=== PATIENT | female | born 1955 | race Hispanic/Latino ===

== ENCOUNTER → 2024-08-05 | Outpatient (CLI) | payer OTHER, MEDICARE ==
[~2024-08-05] MED LIST: ACET500C4 PO; AMLO-257 PO; AMOX500C2 PO; ESCI20TA38 PO; FENO145T26 PO; FOLI0.8T3 PO; GABA300S3 PO; GLIP10TA16 PO; METF-446 PO; PRAV40TA3 PO; RAMI2.5C57 PO
[2024-08-05] MEDS: REGADENOSON 0.4 MG/5 ML PF SYG IVP ONE (11:34)
--- NOTE | 2024-08-06 13:35 | HMCSR ---
APPROVED REPORT Height: 5 ft 3in Weight: 154 lbs TEST INDICATIONS Chest Pain The imaging protocol used to acquire images was Rest Tc-99m/stress Tc-99m 1 day Consent: The procedure was explained and understood by the patient. Informerd consent was witnessed Keanu Upton RN First, low dose rest was performed then high dose stress. RESTING DATA: The resting ekg shows: Junctional vs paced, CLBBB Rest SPECT myocardial perfusion imaging was performed in supine position 67 minutes following the int ravenous injection of 11.4 mCi of Tc-99 Sestamibi. Time of rest injection: 09:41: Date: 08/05/2024 Time of rest imagin:48: Date: 08/05/2024 PHARMACOLOGIC STRESS: Pharmacologic stress test was performed by injecting regadenoson 0.4 mg IV push followed by the intra venous injection of 31.0 mCi of Tc-99 Sestamibi. Time of stress injection: 11:22: Date: 08/05/2024 Time of stress imagin:33: Date: 08/05/2024 Heart Rate at time of stress injection: 95 bpm. Gated Stress SPECT was performed 71 minutes after stress injection. The images were gated to evaluate regional wall motion and calculate left ventricular ejection fracti on. STRESS DETAILS Reason for Termination: Infusion complete Stress Symptoms: Dyspnea Max HR Achieved: 99 bpm % of APMHR Achieved: 65 Max Blood Pressure: 119/67 mmHg Stress ECG: Junctional vs paced, CLBBB Conclusion No ischemia No infarct LV ejejction fraction 9% Normal LV size at rest and stress No increased lung uptake Global severe hypokinesis
== END | disposition home or self-care (01) ==
LOC: SHCH 09:06
PROVIDERS: ATTEND Internal Medicine Cardiovascular Disease
DX: I44.7 Left bundle-branch block, unspecified (principal); R07.9 Chest pain, unspecified
CPT/HCPCS: 78452; 93017; J2785; A9500 ×2

== ENCOUNTER 2025-06-11 06:48 | Day surgery (SDC) | payer OTHER, MEDICAID ==
[2025-06-09 09:35] VITALS: BP 119/59; PULSE 69; RESP 13; TEMP 97.7
[2025-06-09 09:38] LABS: IMMATURE GRANULOCYTE ABSOLUTE 0.03 K/uL (0-1); NUCLEATED RED BLOOD CELLS 0.0 % (0.0-0.19); PLATELET COUNT (AUTO) 200 K/uL (130-400); RED BLOOD CELL COUNT(AUTO) 3.13 MIL/uL (4.00-5.50); RED CELL DISTRIBUTION WIDTH 13.7 % (11.0-15.5); WHITE BLOOD COUNT (AUTO) 3.0 K/uL (4.8-10.8)
[2025-06-09 09:38] LABS: CREATININE 0.8 mg/dL (0.5-1.0); GLOMERULAR FILTR. RATE CALC 80.0 mL/min (>90); GLUCOSE,RANDOM 118.0 mg/dL (70-105); SODIUM SERUM 143.0 mmol/L (136-145); UREA NITROGEN, BLOOD 21.0 mg/dL (7-18)
[2025-06-09 09:45] LABS: INR 1.77 (0.85-1.15)
[2025-06-09 14:26] LABS: BASOPHILS % (MANUAL) 1 % (0-2); EOSINOPHILS % (MANUAL) 6 % (1-6); LYMPHOCYTES % (MANUAL) 23 % (22-44); MAN.DIFF COMMENT-IMPRESSION MANUAL DIFFERENTIAL; PLATELET MORPHOLOGY COMMENT ADEQUATE; SEGMENTED NEUTROPHILS % 70 % (40-70)
--- NOTE | 2025-06-09 14:35 | EKG ---
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
--- NOTE | 2025-06-10 16:25 | NUR ---
report reported coags to dr silva. received orders to repeat in am.
[~2025-06-11] VITALS: Ht 160 cm; Wt 67.9 kg
[2025-06-11] VITALS (8 sets, daily range): BP systolic 107–122; BP diastolic 47–77; PULSE 70–96; RESP 13–19; TEMP 97.6–97.9
[~2025-06-11 06:48] MED LIST changes: -ACET500C4 PO; +AEC81 PO; -AMLO-257 PO; -AMOX500C2 PO; +EMPA1TAB7 PO; +FERS325 PO; +GABA300C PO; -GABA300S3 PO; -GLIP10TA16 PO; -METF-446 PO; +MIDO10TA3 PO; +PIOG30TA70 PO; -PRAV40TA3 PO; +PRAV40TA62 PO; -RAMI2.5C57 PO; +SOLI10TA PO
[2025-06-11 07:19] LABS: INR 1.08 (0.85-1.15)
[2025-06-11] MEDS: 0.9%NACL 1000ML 1,000 ML IV SCH (07:48)
[2025-06-11] MEDS ORDERED: LIDOCAINE HCL 1% MDV 50ML VIAL ONE (10:05)
[2025-06-11] MEDS ORDERED: SODIUM BICARB 50MEQ 50ML VIAL 50 ML ONE (10:05)
[2025-06-11] MEDS ORDERED: MIDAZOLAM HCL 1 MG/ML 2ML VIAL ONE ×3 (10:30→15:50)
[2025-06-11] MEDS ORDERED: IOHEXOL-350 50ML VIAL IV ONE ×2 (10:39→12:33)
[2025-06-11] MEDS ORDERED: NITROGLYCERIN 50MG VIAL ONE (13:06)
[2025-06-11] MEDS ORDERED: BACITRACIN 1 EACH PACKET TP ONE (14:47)
[2025-06-11] MEDS ORDERED: TRAM50TA4 PO (16:34)
--- NOTE | 2025-06-11 16:45 | NUR ---
LOCAL OWNER OPERATOR TRUCK DRIVER POST-PROCEDURE PRESSURE DRESSING TO LEFT UPPER CHEST. NO ACTIVE BLEEDING OR DRAINAGE NOTED TO DRESSING. PRESSURE DRESSING DRY AND INTACT. NO REDNESS OR SWELLING NOTED TO DRESSING. PATIENT ABLE TO WIGGLE FINGERS. PATIENT AWAKE AND ORIENTED X4. DAUGHTER AND AT BEDSIDE. CALL LIGHT AT BEDSIDE. BED LOW AND LOCKED.
--- NOTE | 2025-06-11 17:00 | NUR ---
POST-ACCOUNTS RECEIVABLE ASSOCIATE PRESSURE DRESSING TO LEFT UPPER CHEST. PRESSURE DRESSING DRY AND INTACT. NO ACTIVE BLEEDING OR DRAINAGE NOTED. NO REDNESS OR SWELLING NOTED. PATIENT ABLE TO WIGGLE FINGERS.
[2025-06-11] MEDS ORDERED: METO-408 PO (17:14)
--- NOTE | 2025-06-11 17:15 | NUR ---
POST-STUDENT DEVELOPMENT COORDINATOR PRESSURE DRESSING TO LEFT UPPER CHEST. PRESSURE DRESSING DRY AND INTACT. NO ACTIVE BLEEDING OR DRAINAGE NOTED. NO REDNESS OR SWELLING NOTED. PATIENT ABLE TO WIGGLE FINGERS.
--- NOTE | 2025-06-11 17:30 | NUR ---
POST-INSOLE TAPER PRESSURE DRESSING TO LEFT UPPER CHEST. NO ACTIVE BLEEDING OR DRAINAGE NOTED TO DRESSING. NO REDNESS OR SWELLING NOTED. PATIENT ABLE TO WIGGLE FINGERS. PRESSURE DRESSING DRY AND INTACT.
--- NOTE | 2025-06-11 18:00 | NUR ---
POST-DESKTOP SUPPORT CONSULTANT PRESSURE DRESSING TO LEFT UPPER CHEST. PRESSURE DRESSING DRY AND INTACT. NO ACTIVE BLEEDING OR DRAINAGE. NO REDNESS OR SWELLING NOTED TO DRESSING. PATIENT ABLE TO WIGGLE FINGERS.
--- NOTE | 2025-06-11 18:30 | NUR ---
POST-HOSPITAL INSURANCE CLERK PRESSURE DRESSING TO LEFT UPPER CHEST DRY AND INTACT. NO ACTIVE BLEEDING OR DRAINAGE NOTED. NO REDNESS OR SWELLING NOTED. PATIENT ABLE TO WIGGLE FINGERS.
--- NOTE | 2025-06-11 18:45 | NUR ---
POST-DRAFTER DIRECTIONAL SURVEY PROCEDURE REMOVED PRESSURE DRESSING. 4X4 STERILE GAUZE AND 4X4 TEGADERM DRY AND INTACT. SLIGHT RED DRAINAGE NOTED TO GAUZE. DRAINAGE CIRCLED. NO REDNESS OR SWELLING NOTED. NO ACTIVE BLEEDING OR ACTIVE DRAINAGE NOTED. PATIENT ABLE TO WIGGLE HAND.
--- NOTE | 2025-06-11 18:54 | NUR ---
POSTOP-PRESS SET UP RED DRAINAGE DID NOT GROW ON DRESSING. NO ACTIVE BLEEDING OR DRESSING. NO REDNESS OR SWELLING. STERILE 4X4 GAUZE AND STERILE 4X4 TEGADERM DRY AND INTACT. PATIENT ABLE TO WIGGLE FINGERS.
--- NOTE | 2025-06-12 18:13 | PRN ---
Procedure Note INDICATION FOR PROCEDURE: Congestive heart failure PROCEDURE: Upgrade of pacemaker to cardiac resynchronization therapy pacemaker versus implantation of a conduction system pacing lead. DATE OF PROCEDURE: 06/11/2025 THERAPEUTIC ASSISTANT: Dr. Kieran Simon PROCEDURE NOTE: The patient was brought to the laborer drying department in a fasting state. Moderate sedation was achieved with midazolam and fentanyl. Local anesthesia was provided with lidocaine and Marcaine. The existing scar was excised in the pocket was opened with blunt dissection and electrosurgery down to the chronic pocket. The device was delivered from the pocket and the leads were freed from the fibrous tissue. A capsulectomy was performed. Access was obtained to the left axillary vein. There was some stenosis in the innominate vein but this was fairly easily crossed with a guidewire. Over the wire, a 9-Nepali peel-away introducer was inserted, through which the Biotronik CS lead delivery system was advanced to the right atrium. The coronary sinus was cannulated with only mild difficulty. A balloon catheter was advanced and to venograms were performed, one of the distal aspect and one more proximally. There were only very small branches which would not accommodate the LV lead. There was a low to mid posterolateral branch which coursed superiorly and then took a right angle turn along the heart border, however at this right angle there was a kink. While a 014 wire was advanced with difficulty, the lead would not advance. There was another branch close to the coronary sinus ostium which bifurcated into two small vessels. Lower of the two was very tortuous. A wire and lead were placed in his branch but could only be placed proximally. Removal of the delivery system quickly cause the lead to dislodge. A 2nd attempt confirmed that this lead would not be stable even if it did remain in place for the duration of the case. Then, a branch above it had a significant stenosis about a [address] to the distal aspect. Despite multiple attempts, this stenosis could not be crossed with a lead. Another attempt was made with a [place] lead which has a slightly different profile and is often successfully deployed and small vessels. This was unable to be advanced any further than originally in and would not remain in place upon removing the sheath. It was then decided to abort these attempts and proceed with the conduction system pacing. The Biotronik Selectra 3D sheath was inserted and maneuvering was extremely difficult due to fairly heavy trabeculations in the right ventricle. At one point in excellent location was found with the excellent numbers however this lead then and dislodged for unclear reasons as it was well fixed into the septum with clear evidence of conduction system pacing. Multiple other attempts were made and no suitable location could be found. It was then decided to abort the procedure given the time elapsed and the lack of other viable options at the time. The device was then placed back in the pocket. Hemostasis was achieved and the pocket was irrigated with an antibiotic-containing solution. The subcutaneous tissues were closed with 2-0 Vicryl in two layers and the skin was closed with donn. A sterile dressing was applied and the patient was returned to her room in stable condition. IMPRESSION: 1. Unsuccessful implantation of left ventricular lead 2. Unsuccessful implantation of conduction system pacing lead. PLAN: The patient will be discharged later this evening. She will be evaluated in the office and will likely be offered CCM therapy. KIERAN SIMON MD Jun 12, 2025 18:13
== END 2025-06-11 18:56 | disposition home or self-care (01) ==
LOC: DAH 06:48
PROVIDERS: ATTEND Internal Medicine Cardiovascular Disease
DX: I42.0 Dilated cardiomyopathy (principal); I11.0 Hypertensive heart disease with heart failure; I50.42 Chronic combined systolic (congestive) and diastolic (congestive) heart failure; E78.5 Hyperlipidemia, unspecified; E11.42 Type 2 diabetes mellitus with diabetic polyneuropathy; I44.0 Atrioventricular block, first degree; I45.4 Nonspecific intraventricular block; I95.1 Orthostatic hypotension; Z95.0 Presence of cardiac pacemaker; Z90.49 Acquired absence of other specified parts of digestive tract; Z79.82 Long term (current) use of aspirin; Z79.899 Other long term (current) drug therapy; Z53.8 Procedure and treatment not carried out for other reasons
CPT/HCPCS: 80048; 85025; 85610 ×2; 85730 ×2; 36415 ×2; 93005; 33229; 33225; 99156; 99157 ×6; 82948 ×2; C1769 ×9; C1898 ×2; J3010 ×2; J0690 ×2; J7030; J0665; J3490 ×3; J2250 ×3; Q9967 ×2; A4215; A4222; A4221; A4663; A4216; A4606; C1900 ×2; A4223 ×3; 76000